=== PATIENT | male | born 1975 | race Caucasian/White ===

== ENCOUNTER 2019-12-15 13:28 | Emergency (ER) | payer OTHER ==
[~2019-12-15] VITALS: Ht 177.8 cm; Wt 99.8 kg
[2019-12-15] MEDS ORDERED: ACETAMINOPHEN 325 MG TABLET PO ONE ×3 (14:00→20:00)
--- NOTE | 2019-12-15 14:00 | NUR ---
BIBRA 860 FROM HOME C/O FEVER,WEAKNESS AND N/V FOR 3 DAYS. PT AAOX4, VSS. DENIES CP, SOB, ABD PAIN, DIARRHEA @ THIS TIME. PT SEEN & EVAL'D BY DR. LEAL. WILL CONT TO MONITOR.
[2019-12-15] MEDS ORDERED: ACETAMINOPHEN 325 MG TABLET ONE ×2 (14:36→19:57)
--- NOTE | 2019-12-15 16:14 | NUR ---
GAVE MOVESHEET AND CLINICALS TO ADMITTING FOR INSURANCE
[2019-12-15 16:35] LABS: BASOPHILS % (AUTO) 0.3 % (0.0-2.0); HEMATOCRIT 43 % (39-51); HEMOGLOBIN 14.7 g/dL (13.5-17.5); LYMPHOCYTES # (AUTO) 1.8 /CMM (0.8-4.8); LYMPHOCYTES % (AUTO) 12.2 % (20.0-44.0); MEAN CORPUSCULAR HGB CONC 34 g/dl (31.0-36.0); MEAN CORPUSCULAR VOLUME 87 fL (80-96); MONOCYTES # (AUTO) 1.8 /CMM (0.1-1.30); MONOCYTES % (AUTO) 12.1 % (2.0-12.0); NEUTROPHILS % (AUTO) 75.4 % (43.0-81.0); PLATELET COUNT (AUTO) 123 /CMM (150-450); RED BLOOD CELL COUNT(AUTO) 4.97 MIL/uL (4.5-6.0); WHITE BLOOD COUNT (AUTO) 14.5 K/uL (4.3-11.0)
--- NOTE | 2019-12-15 16:50 | NUR ---
PT TO CT VIA [facility].
[2019-12-15 16:54] LABS: ALANINE AMINOTRANSFERASE 47 U/L (12-78); ALBUMIN 3.9 g/dL (3.4-5.0); ALKALINE PHOSPHATASE 60 U/L (46-116); ASPARTATE AMINOTRANSFERASE 47 U/L (15-37); BILIRUBIN,DIRECT 0.3 mg/dL (0.0-0.2); BILIRUBIN,TOTAL 1.4 mg/dL (0.2-1.0); CALCIUM, SERUM 8.8 mg/dL (8.5-10.1); CARBON DIOXIDE 29 mmol/L (21-32); CHLORIDE 97 mmol/L (98-107); GLUCOSE 120 mg/dL (74-106); POTASSIUM 2.9 mmol/L (3.5-5.1); SODIUM SERUM 136 mmol/L (136-145); TOTAL PROTEIN, SERUM 7.2 g/dL (6.4-8.2); UREA NITROGEN, BLOOD 10 mg/dL (7-18)
[2019-12-15 17:07] LABS: THYROID STIMULATING HORMONE 0.633 uIU/mL (0.358-3.74)
[2019-12-15 17:07] LABS: CREATINE KINASE, TOTAL 1371 U/L (39-308)
[2019-12-15 17:17] LABS: ALCOHOL, BLOOD 1 mg/dL (0-0)
[2019-12-15 17:22] LABS: APPEARANCE,URINE Slightly Cloudy (CLEAR); BILIRUBIN,URINE Negative (NEGATIVE); BLOOD, URINE Negative Ery/uL (NEGATIVE); KETONES,URINE Negative (NEGATIVE); LEUKOCYTE ESTERASE ,URINE Negative (NEGATIVE); NITRITE, URINE Negative (NEGATIVE); PH,URINE 6.5 (5.0-8.0); PROTEIN,URINE 100 mg/dl (NEGATIVE); UGLUCOSE Negative (NEGATIVE)
[2019-12-15] MEDS ORDERED: CT SWABBABLE VALVE TRANS SET 1 EA INFUS.SET MC ONE (17:25)
[2019-12-15] MEDS ORDERED: IOHEXOL-350 100 ML VIAL IV ONE (17:25)
[2019-12-15] MEDS ORDERED: IV NS 0.9% 250 ML IV ONE (17:25)
[2019-12-15 17:30] LABS: COLOR,URINE DARK YELLOW (YELLOW)
[2019-12-15] MEDS ORDERED: POTASSIUM CHLORIDE 20 MEQ TAB.PRT.SR PO ONE ×2 (17:30→18:08)
[2019-12-15 17:39] LABS: BACTERIA,URINE Rare /HPF (None Seen); CALCIUM OXALATE CRYSTALS,UR Rare /HPF (None Seen); SQUAMOUS EPITHELIAL CELL,UR Rare /HPF (None Seen); WBC,URINE 0-2 /HPF (0-3)
--- NOTE | 2019-12-15 17:45 | NUR ---
SANDRA WEBER (MOTHER) [phone]
--- NOTE | 2019-12-15 17:50 | NUR ---
PER ADMITTING, AWAITING CALL BACK FROM PODIATRIC MEDICINE DOCTOR
[2019-12-15] MEDS ORDERED: CEFEPIME 1 GM in IV D5W 50 ML IV ONE (18:00)
[2019-12-15] MEDS ORDERED: VANCOMYCIN 1 GM in IV D5W 250 ML IV ONE (18:00)
[2019-12-15] MEDS ORDERED: IV NS 0.9% 1,000 ML BAG IV ONE (18:00)
[2019-12-15] MEDS ORDERED: POTASSIUM CL. PREMIX PERIPHER. 200 ML ONE (18:08)
[2019-12-15] MEDS: POTASSIUM CL. PREMIX PERIPHER. 50 ML IV SCH ×3 (18:35→20:40)
--- NOTE | 2019-12-15 18:42 | NUR ---
MEDICATED PER ERMD ORDER, PT CELIA WELL.
[2019-12-15] MEDS ORDERED: POTASSIUM CL. PREMIX PERIPHER. 150 ML ONE (19:40)
[2019-12-15] MEDS ORDERED: VANCOMYCIN 1 GM VIAL ONE (19:40)
--- NOTE | 2019-12-15 19:58 | NUR ---
PATIENT'S TEMPERATURE AT 102.8, MD NOTIFIED.
[2019-12-15 20:00] VITALS: BP 146/87
--- NOTE | 2019-12-15 20:00 | NUR ---
PATIENT MEDICATED WITH 650MG TYLENOL PER MD'S ORDER.
--- NOTE | 2019-12-15 20:33 | NUR ---
ACCEPTED AT [facility] ROOM [id number] [phone] WILL CALL BACK WITH TRANSFER INFO
--- NOTE | 2019-12-15 20:52 | NUR ---
[facility] ETA 2119
--- NOTE | 2019-12-15 21:57 | NUR ---
REPORT GIVEN TO MAYKEL CASTANON AT [facility] FOR [facility].
--- NOTE | 2019-12-15 22:09 | NUR ---
REPORT GIVEN TO TRANSPORT TEAM FOR CARM[facility]A. AND TRANSFERRING RESPONSIBILITIES.
== END 2019-12-15 22:11 | disposition short-term general hospital (02) ==
LOC: ER 13:32
DX: A41.9 Sepsis, unspecified organism (principal); R65.20 Severe sepsis without septic shock; E87.6 Hypokalemia; D69.6 Thrombocytopenia, unspecified; R94.5 Abnormal results of liver function studies; F12.10 Cannabis abuse, uncomplicated; I48.91 Unspecified atrial fibrillation
CPT/HCPCS: 36415; 70450; 71045; 71275; 80048; 80076; 80305; 80307; 81001; 82550; 82553; 83605 ×2; 83735; 84145; 84439; 84443; 84484 ×2; 85025; 85730; 87040 ×2; 87081; 87086; 93005 ×2; 96360; 96361; 96365; 96366; 99291; C9803; J0692; J3370 ×2; J3480 ×2; J7030 ×2; J7040; J7050; J7060; Q9967; U0003; 81000-TC; G0480

== ENCOUNTER 2019-12-24 09:10 | Emergency (ER) | payer OTHER ==
[~2019-12-24] VITALS: Ht 170.2 cm; Wt 95.3 kg
[2019-12-24] MEDS: IV NS 0.9% 1,000 ML BAG IV ONE (10:02)
[2019-12-24 10:05] LABS: BASOPHILS # (AUTO) 0.1 /CMM (0.0-0.2); BASOPHILS % (AUTO) 0.8 % (0.0-2.0); EOSINOPHILS % (AUTO) 0.3 % (0.0-6.0); HEMATOCRIT 47 % (39-51); HEMOGLOBIN 15.9 g/dL (13.5-17.5); LYMPHOCYTES # (AUTO) 1.5 /CMM (0.8-4.8); LYMPHOCYTES % (AUTO) 23.6 % (20.0-44.0); MEAN CORPUSCULAR HGB CONC 34 g/dl (31.0-36.0); MEAN CORPUSCULAR VOLUME 88 fL (80-96); MONOCYTES # (AUTO) 0.7 /CMM (0.1-1.30); MONOCYTES % (AUTO) 11.3 % (2.0-12.0); NEUTROPHILS # (AUTO) 4.1 /CMM (1.8-8.9); PLATELET COUNT (AUTO) 360 /CMM (150-450); RED BLOOD CELL COUNT(AUTO) 5.29 MIL/uL (4.5-6.0); WHITE BLOOD COUNT (AUTO) 6.4 K/uL (4.3-11.0)
[2019-12-24 10:12] LABS: CALCIUM, SERUM 9.7 mg/dL (8.5-10.1); CARBON DIOXIDE 33 mmol/L (21-32); CHLORIDE 101 mmol/L (98-107); GLUCOSE 98 mg/dL (74-106); POTASSIUM 4.2 mmol/L (3.5-5.1); SODIUM SERUM 138 mmol/L (136-145); UREA NITROGEN, BLOOD 19 mg/dL (7-18)
[2019-12-24 10:18] LABS: ALANINE AMINOTRANSFERASE 58 U/L (12-78); ALBUMIN 4.2 g/dL (3.4-5.0); ALKALINE PHOSPHATASE 63 U/L (46-116); ASPARTATE AMINOTRANSFERASE 17 U/L (15-37); BILIRUBIN,DIRECT 0.3 mg/dL (0.0-0.2); BILIRUBIN,TOTAL 1.2 mg/dL (0.2-1.0); TOTAL PROTEIN, SERUM 7.7 g/dL (6.4-8.2)
--- NOTE | 2019-12-24 13:00 | NUR ---
Pt walked out of room and sat on chair in nurses station adjacent to his room and when asked to go back stated "I cant walk I will fall down"
--- NOTE | 2019-12-24 13:21 | NUR ---
ADRIENNE GAMEZ CALLED TO GIVE UPDATE ABOUT PT. PER DR. BISHOP ACCEPTING DR AT [place], PT DOES NOT MEET CRITERIA TO BE ADMITTED IN [facility]. BETTER TO BE DISCHARGED HOME. CALL BACK NUMBER FOR VERA DELEON [phone].
[2019-12-24 14:12] VITALS: BP 134/74
--- NOTE | 2019-12-24 14:12 | NUR ---
Pt for discharge-able to stand up and ambulate. ACI given Patient discharged to home in stable condition. Written and verbal after care instructions given. Patient verbalizes understanding of instruction.
== END 2019-12-24 14:14 | disposition home or self-care (01) ==
LOC: ER 09:13
DX: U07.1 COVID-19 (principal); R53.1 Weakness; R26.2 Difficulty in walking, not elsewhere classified
CPT/HCPCS: 36415; 71045; 80048; 80076; 84484; 85025; 93005; 99285; J7030